=== PATIENT | female | born 1925 | race Caucasian/White ===

== ENCOUNTER 2016-10-11 15:03 | Inpatient (IN) | payer MEDICARE ==
--- NOTE | 2016-10-11 15:06 | ED Physician Chart ---
Chief Complaint/HPI - Patient Information Date Seen:: 10/11/16 Time Seen:: 15:06 Chief Complaint:: cough History of Present Illness:: 89-year-old female brought in by EMS with acute, worsening, constant, moderate to severe, nonproductive cough with associated shortness of breath since early this morning. Also has associated weakness. Limited history as patient has some slight dementia Some history provided by EMS and EMS run sheet Historian:: Patient Review:: Nurse's Note Reviewed Review of Systems - Review of Systems Other: Complete system review otherwise unremarkable except as noted in HPI. Past Medical History - Past Medical History Past Medical History: HTN, CHF, PUD/GERD, Dementia, Other (afib) Family History: None Social History: Non Smoker, No Alcohol, No Drug Use, Care Facility Surgical History: None Psychiatricy History: Dementia Medication: Reviewed Family Medical History - Family Member Mother History Unknown: Yes Physical Exam - Physical Examination Other:: INITIAL VITAL SIGNS: Reviewed by me GENERAL: Alert and interactive. No acute distress HEAD: Head is normocephalic and atraumatic EYES: EOMI. . No scleral icterus. No conjunctival injection ENT: Moist mucous membranes. NECK: Supple. No masses. Full range of motion RESPIRATORY: No tachypnea. Patient has cough with inspiration, prolonged expiratory phase, and some wheezing worse on the right than left. The right lower lung has slight rales. CV: Regular rate and rhythm. No murmurs, rubs, or gallops ABDOMEN: Soft, non-distended, non-tender. No guarding. No rebound. No masses. EXTREMITIES: No deformity. No cyanosis. No edema. SKIN: Warm and dry. No obvious rashes. NEUROLOGIC: Alert and oriented. Face is symmetric. Speech is normal. Moves all extremities equally. Motor and sensory distally intact. Labs/Radiology/EKG Results - Lab Results Results: Lab Results 10/11/16 10/11/16 10/11/16 Range/Units 15:19 15:19 15:19 WBC 13.0 H (4.8-10.8) Th/cmm RBC 4.48 (3.80-5.20) Mil/cmm Hgb 12.5 (11.7-16.1) gm/dL Hct 37.7 (35.0-45.0) % MCV 84.1 (81-100) fl MCH 27.9 (27.0-31.0) pg MCHC Differential 33.1 (28.0-36.0) pg RDW 15.4 (11.5-20.0) % Plt Count 350 (150-400) Th/cmm MPV 9.1 fl Neutrophils % 86.6 H (40.0-80.0) % Lymphocytes % 7.8 L (20.0-50.0) % Monocytes % 4.0 (2.0-10.0) % Eosinophils % 1.1 (0.0-5.0) % Basophils % 0.5 (0.0-2.0) % PT 10.8 (9.5-11.5) SECONDS INR 1.08 (0.5-1.4) PTT (Actin FS) 30.3 (26.0-38.0) SECONDS Sodium 130 L (136-145) mEq/L Potassium 4.9 (3.5-5.1) mEq/L Chloride 92 L (98-107) mEq/L Carbon Dioxide 35.1 H (21.0-31.0) mEq/L Anion Gap 7.8 (7.0-16.0) BUN 26 H (7-25) mg/dL Creatinine 1.3 H (0.6-1.2) mg/dL Est GFR ( Amer) TNP Est GFR (Non-Af Amer) TNP BUN/Creatinine Ratio 20.0 Glucose 146 H (70-105) mg/dL Whole Bld Lactic Acid (0.60-2.00) mmol/L Calcium 8.7 (8.6-10.3) mg/dL Total Bilirubin 0.3 (0.3-1.0) mg/dL AST 22 (13-39) U/L ALT 41 (7-52) U/L Alkaline Phosphatase 79 (34-104) U/L Creatine Kinase 39 (30-223) U/L Total Protein 6.0 (6.0-8.3) gm/dL Albumin 3.1 L (3.7-5.3) gm/dL Globulin 2.9 gm/dL Albumin/Globulin Ratio 1.1 (1.0-1.8) Urine Source Urine Color Urine Clarity (CLEAR) Urine pH Ur Specific [place] (1.005-1.030) Urine Protein (NEGATIVE) mg/dL Urine Glucose (UA) (NEGATIVE) mg/dL Urine Ketones (NEGATIVE) mg/dL Urine Blood (NEGATIVE) Urine Nitrate (NEGATIVE) Urine Bilirubin (NEGATIVE) Urine Urobilinogen (0.2 - 1.0) E.U./dL Ur Leukocyte Esterase (NEGATIVE) Urine RBC (0-5) /hpf Urine WBC (0-5) /hpf Ur Epithelial Cells (FEW) /lpf Urine Bacteria (NONE SEEN) /hpf 10/11/16 10/11/16 Range/Units 15:19 16:10 WBC (4.8-10.8) Th/cmm RBC (3.80-5.20) Mil/cmm Hgb (11.7-16.1) gm/dL Hct (35.0-45.0) % MCV (81-100) fl MCH (27.0-31.0) pg MCHC Differential (28.0-36.0) pg RDW (11.5-20.0) % Plt Count (150-400) Th/cmm MPV fl Neutrophils % (40.0-80.0) % Lymphocytes % (20.0-50.0) % Monocytes % (2.0-10.0) % Eosinophils % (0.0-5.0) % Basophils % (0.0-2.0) % PT (9.5-11.5) SECONDS INR (0.5-1.4) PTT (Actin FS) (26.0-38.0) SECONDS Sodium (136-145) mEq/L Potassium (3.5-5.1) mEq/L Chloride (98-107) mEq/L Carbon Dioxide (21.0-31.0) mEq/L Anion Gap (7.0-16.0) BUN (7-25) mg/dL Creatinine (0.6-1.2) mg/dL Est GFR ( Amer) Est GFR (Non-Af Amer) BUN/Creatinine Ratio Glucose (70-105) mg/dL Whole Bld Lactic Acid 0.95 (0.60-2.00) mmol/L Calcium (8.6-10.3) mg/dL Total Bilirubin (0.3-1.0) mg/dL AST (13-39) U/L ALT (7-52) U/L Alkaline Phosphatase (34-104) U/L Creatine Kinase (30-223) U/L Total Protein (6.0-8.3) gm/dL Albumin (3.7-5.3) gm/dL Globulin gm/dL Albumin/Globulin Ratio (1.0-1.8) Urine Source CATH Urine Color YELLOW Urine Clarity CLOUDY H (CLEAR) Urine pH 5.5 Ur Specific [place] 1.015 (1.005-1.030) Urine Protein NEGATIVE (NEGATIVE) mg/dL Urine Glucose (UA) NEGATIVE (NEGATIVE) mg/dL Urine Ketones NEGATIVE (NEGATIVE) mg/dL Urine Blood TRACE (NEGATIVE) Urine Nitrate POSITIVE H (NEGATIVE) Urine Bilirubin NEGATIVE (NEGATIVE) Urine Urobilinogen 0.2 (0.2 - 1.0) E.U./dL Ur Leukocyte Esterase MODERATE H (NEGATIVE) Urine RBC 2-5 (0-5) /hpf Urine WBC 50-100 H (0-5) /hpf Ur Epithelial Cells FEW (FEW) /lpf Urine Bacteria MODERATE (NONE SEEN) /hpf - Radiology Results Results: Single AP VIEW Portable Chest X-ray was interpreted independently and contemporaneously by Vika Prescott MD: No cardiomegaly Normal mediastinum Right lower lobe infiltrates No pneumothorax No soft tissue or bony abnormalities - EKG Interpretations Comments:: 12-lead EKG Interpretation by Vika Prescott MD: Atrial fibrillation with ventricular rate of 47 beats per minute Normal axis Normal intervals No acute ST or T wave changes. No obvious STEMI ED Septic Shock - . Is Septic Shock (SBP<90, OR Lactate>4 mmol\L) present?: No Reassessment (Disposition) - Reassessment Reassessment:: Patient has right lower lobe pneumonia. She also has a urinary tract infection. She does have bradycardia with A. fib. She is a leukocytosis as well. She did have some wheezing when she first arrived. She did receive Solu- Medrol and breathing treatment. She also received blood cultures prior to receiving antibiotics. She received IV antibiotics. She did so some improvement in the ER however given her advanced age and symptoms and multiple morbidities including acute pneumonia and acute urinary tract infection and acute kidney injury A she'll likely benefit from further hospitalization and treatment. I spoke to Dr. Chowdhury about the case. Patient has good understanding of the case. He'll admit the patient for further workup and treatment. Reassessment Condition:: Improved - Diagnosis Diagnosis:: Right lower lobe pneumonia Acute urinary tract infection with hematuria Acute kidney injury Dehydration - Patient Disposition Discharge/Transfer:: Acute Care w/in this hosp Admitted to:: Telemetry Admitting Medical Physician:: Aquilino Chowdhury Time:: 18:00 Condition at Disposition:: Improved
[2016-10-11] MEDS ORDERED: cefTRIAXone 1 GM in Sodium Chloride 0.9% 50 ML IV ONE (15:14)
[2016-10-11] MEDS ORDERED: Azithromycin 500 MG in Sodium Chloride 0.9% 500 ML IV ONE (15:15)
[2016-10-11] MEDS ORDERED: Albuterol/Ipratropium Neb 3 ML AERS HHN ONE ×2 (15:30→15:35)
[2016-10-11 15:40] LABS: % BASOPHILS 0.5 % (0.0-2.0); % EOSINOPHILS 1.1 % (0.0-5.0); % LYMPHOCYTES 7.8 % (20.0-50.0); % NEUTROPHILS 86.6 % (40.0-80.0); HEMATOCRIT 37.7 % (35.0-45.0); HEMOGLOBIN 12.5 gm/dL (11.7-16.1); MEAN CELL VOLUME 84.1 fl (81-100); MEAN CORPUSCULAR HEMOGLOBIN 27.9 pg (27.0-31.0); MEAN CORPUSCULAR HGB CONC 33.1 pg (28.0-36.0); MEAN PLATELET VOLUME 9.1 fl; NEUTROPHILE ABSOLUTE 11.3 Th/cmm (1.8-8.0); PLATELET COUNT 350 Th/cmm (150-400); RED BLOOD COUNT 4.48 Mil/cmm (3.80-5.20); RED CELL DISTRIBUTION WIDTH 15.4 % (11.5-20.0)
[2016-10-11 15:46] LABS: INR 1.08 (0.5-1.4); PROTHROMBIN TIME (TEST) 10.8 SECONDS (9.5-11.5)
[2016-10-11 15:59] LABS: ALB/GLOB RATIO 1.1 (1.0-1.8); ANION GAP 7.8 (7.0-16.0); BILIRUBIN,TOTAL 0.3 mg/dL (0.3-1.0); BUN - UREA NITROGEN 26 mg/dL (7-25); CALCIUM SERUM 8.7 mg/dL (8.6-10.3); CARBON DIOXIDE 35.1 mEq/L (21.0-31.0); CHLORIDE 92 mEq/L (98-107); CREATININE - SERUM 1.3 mg/dL (0.6-1.2); GLUCOSE 146 mg/dL (70-105); POTASSIUM SERUM 4.9 mEq/L (3.5-5.1); SGOT 22 U/L (13-39); SGPT/ALT 41 U/L (7-52); SODIUM SERUM 130 mEq/L (136-145)
[2016-10-11 16:00] LABS: ALKALINE PHOSPHATASE 79 U/L (34-104)
[2016-10-11 16:53] LABS: URINE BILIRUBIN NEGATIVE (NEGATIVE); URINE COLOR YELLOW; URINE GLUCOSE (UA) NEGATIVE (NEGATIVE); URINE KETONE NEGATIVE (NEGATIVE)
[2016-10-11 16:54] LABS: URINE BLOOD TRACE (NEGATIVE); URINE PH 5.5; URINE PROTEIN NEGATIVE (NEGATIVE); URINE UROBILINOGEN 0.2 E.U./dL (0.2 - 1.0)
[2016-10-11 16:55] LABS: URINE BACTERIA MODERATE /hpf (NONE SEEN); URINE EPITHELIAL CELLS FEW /lpf (FEW); URINE WBC 50-100 /hpf (0-5)
[2016-10-11] MEDS ORDERED: Fleet Enema 135 mL RC PRN (19:37)
[2016-10-11] MEDS ORDERED: Atropine Sulfate 0.1 mg/mL 5 mL Syr IVP PRN (20:05)
[2016-10-11] MEDS ORDERED: Atropine Sulfate 1 mg/mL 1 mL Vial IVP PRN (20:27)
--- NOTE | 2016-10-11 22:32 | Admit Criteria Form ---
Admit Criteria Forms - Admit Criteria Diagnosis: PNEUMONIA, COMMUNITY ACQUIRED Clinical Indications for Admission to Inpatient Care ( Place 'X' for any and all applicable criteria): Admission is indicated for ANY ONE of the following (1)(2)(3): [ ]I. Hypoxemia indicated by ANY ONE of the following: [ ]a) Oxygen saturation less than 90% while breathing room air [ ]b) PO2 less than 60 mm Hg (8.0 kPa) while breathing room air [ ]c) Chronic lung disease with significant deterioration from baseline oxygenation [ ]II. Appropriate diagnostic testing and treatment unavailable in outpatient or recovery facility (eg,testing or infection control measures unavailable(10) [ ]III. Moderate-risk or high-risk category patients (Pneumonia Severity Index (PSI) class IV or V, or CURB-65 score of 3 or greater). [ ]IV. Outpatient treatment failure as indicated by ANY ONE of the following(9) : [ ]a) Failure to respond to antibiotic (eg, resistant organism) [ ]b) Clinically significant adverse effects from medication (eg, vomiting) [ ]c) Complications of pneumonia (eg, empyema, bacteremia) [ ]d) Significant worsening of comorbid cond necessitating inpatient care (eg, chronic heart failure) [ X]V. Intermediate-risk category patients (eg, PSI class III or CURB-65 score 2) who do not improve with initial therapy and observation. [ ]. Immunocompromised patients (eg, AIDS, chronic steroid use) at moderate or high risk based on clinical evaluation. [ ]VII. Complicated pleural effusions (eg, exudative, loculated) [X ]VIII.Hemodynamic instability [ ] IX. Altered mental status that is severe or persistent. [ ]X. Dehydration that is severe or persistent. [ ]XI. Bacteremia [ ]XII. Respiratory finding (eg. tachypnea) that do not respond to outpatient or observation care treatment Extended stay beyond goal length of stay may be needed for (20) [ ]a) Unclear diagnosis [ ]b) Pleural disease [ ]c) Severe pneumonia or treatment failure (25 [ ]d) Respiratory failure (anticipate invasive or noninvasive ventilatory support) [ ]e) Abnormal serum electrolytes (serum Na concentration less than 135 mEq/L (mmol/L) (32)(33) [ ]f) Clinically significant comorbid illness (eg, heart failure, atrial fibrillation with rapid heart rate, alcohol withdrawal, renal insufficiency)(34)(35) [ ]g) Comorbid acute exacerbation of COPD(36) [ ]h) Concomitant diagnosis of malignancy that may be associated with malnutrition, immunologic impairment, or bronchial obstruction. [ ]i) Concomitant altered mental status [ ]j) Culture-identified Gram-negative or antibiotic-resistant organism (eg, Pseudomonas, methicillin-resistant Staphylococcus aureus)(30) [ ]k) Healthcare-associated pneumonia The original [facility] [employer] content created by [employer] has been revised. The portions of the content which have been revised are identified through the use of italic text or in bold, and [facility] has neither reviewed nor approved the modified material. All other unmodified content is copyright [facility] [employer]. Please see references footnoted in the original [facility] [employer] edition 2016 Admit Criteria Met?: Yes
[2016-10-12] MEDS: Diltiazem 30 mg Tab PO SCH ×2 (01:30→06:41)
--- NOTE | 2016-10-12 03:22 | History & Physical ---
CHIEF COMPLAINT: Congestion and cough. HISTORY OF PRESENT ILLNESS: The patient is an 89-year-old female with past medical history of hypertension, CHF, peptic ulcer disease, GERD, dementia, atrial fibrillation, brought in from nursing facility for acute worsening of constant [id number] nonproductive cough associated with shortness of breath and congestion. I was informed that the patient had fever also. The patient also complained of dizziness and generalized weakness. On initial evaluation, the patient's vital signs showed temperature 97.9, pulse 50, respirations 16, blood pressure was 119/68, oxygen saturation 97%. WBC count was 13,000 with left shift. The patient had received Rocephin and Zithromax in the ER. The patient also received Solu-Medrol 125 mg IV one dose. The patient was admitted to Telemetry. Her heart rate went down to 38, so patient was transferred to the ICU for further care. External temporary pacemaker was placed in. Some medications including digoxin, amiodarone, metoprolol and digoxin were put on the hold. PAST MEDICAL HISTORY: Includes hypertension, CHF, peptic ulcer disease, GERD, dementia and atrial fibrillation. FAMILY HISTORY: None significant. SOCIAL HISTORY: The patient lives in a nursing facility. No history of smoking, alcohol or drug use. PAST SURGICAL HISTORY: None significant. PAST PSYCHIATRIC HISTORY: Dementia. MEDICATIONS: As per medication reconciliation sheet. [facility] showed aspirin 81 mg p.o. daily, Prevacid 30 mg p.o. daily, Lasix 20 mg p.o. twice a day, diltiazem 30 mg p.o. every 6 hours, Aricept 5 mg p.o. daily at bedtime, Tylenol 650 mg p.o. q. 4 hourly p.r.n., bisacodyl 10 mg per rectum for constipation daily, Colace 100 mg p.o. twice a day, Zofran 4 mg as p.r.n., Senna 1 tablet p.o. daily at nighttime, temazepam 30 mg p.r.n. at nighttime for insomnia, hydralazine 50 mg p.o. 4 times a day p.r.n., labetalol 200 mg three times a day and p.r.n. for high blood pressure, metoprolol 50 mg once a day, lisinopril 2.5 mg p.o. daily, amiodarone 800 mg p.o. 2 times a day, digoxin 0.25 mg p.o. once a day, multivitamins with minerals one tablet p.o. daily, levothyroxine 125 mcg p.o. daily. REVIEW OF SYSTEMS: GENERAL: The patient denies any fever or chills, but as per record, I was informed that the patient has a fever at nursing facility. No fever here. Denies any chills. Denies any diaphoresis. Denies any weight loss. The patient has generalized weakness. HEENT: The patient denies any diplopia, photophobia, sore throat or congestion. RESPIRATORY: The patient has nonproductive cough and congestion, and some shortness of breath. Currently on oxygen about 2 L per minute nasal cannula. CARDIOVASCULAR: The patient has no chest pain or palpitation. GASTROINTESTINAL: The patient denies any nausea, vomiting, diarrhea or constipation. GENITOURINARY: Denies any dysuria or hematuria. NEUROLOGIC: The patient denies any headache, but complains of dizziness. No focal weakness. No seizures. PHYSICAL EXAMINATION: CURRENT VITAL SIGNS: Shows temperature is 97.3 degrees Fahrenheit, pulse 38, respiration is 19, blood pressure 121/55, oxygen saturation 98%. GENERAL: The patient is comfortable lying in a bed, not in acute distress. HEENT: Head is normocephalic, atraumatic. Oral cavity moist. [place] tongue. Eyes, no pallor, no icterus. PERRLA, EOMI. NECK: Supple, no JVD, no carotid bruit. Trachea in midline. CHEST: Bilateral breath sounds. Crackles present mainly in the right side. HEART: S1 and S2 within normal limits. Regular rhythm. Currently, the patient has external pacemaker. Heart rate is 50 beats per minute. ABDOMEN: Soft, nontender, nondistended. Bowel sounds present. EXTREMITIES: No cyanosis, no clubbing, no edema. NEUROLOGIC: Alert, awake, oriented x 3. LABORATORY DATA: Current lab shows WBC count is 13,000, hemoglobin 12.5, hematocrit 37.7, platelets are 350,000, neutrophils 86.6%. Sodium is 130, potassium 4.9, chloride 92, bicarbonate is 35.1, BUN is 26, creatinine 1.3, glucose is 146. Lactic acid 0.95. LFTs are reviewed. Urinalysis showed positive nitrite, moderate leukocyte esterase, wbc 50-100. EKG shows atrial fibrillation with prolonged pauses. IMPRESSION: 1. Bradycardia, sick sinus syndrome versus drug induced. 2. Right lower lobe pneumonia as chest x-ray reported. Right lower lobe pneumonia infiltrate as per reading by ER physician. 3. Hypertension. 4. Atrial fibrillation. 5. Leukocytosis sepsis. 6. Hypothyroidism. 7. Congestive heart failure. 8. Peptic ulcer disease. 9. Dementia. RECOMMENDATIONS: We will start Zosyn,put external pacemaker, discontinue amiodarone, labetalol, metoprolol, and diltiazem. If bradycardia resolves, then resume the medications accordingly. Cardiology consult with Dr. Thiago Chowdhury and check cardiac marker and echocardiogram. Check EKG. JOB# [id number] JE
[2016-10-12 05:20] LABS: HEMATOCRIT 38.6 % (35.0-45.0); HEMOGLOBIN 12.7 gm/dL (11.7-16.1); RED BLOOD COUNT 4.63 Mil/cmm (3.80-5.20)
[2016-10-12 05:30] LABS: ALKALINE PHOSPHATASE 77 U/L (34-104); ANION GAP 11.5 (7.0-16.0); BILIRUBIN,TOTAL 0.4 mg/dL (0.3-1.0); BUN - UREA NITROGEN 28 mg/dL (7-25); BUN/CREATININE RATIO 21.5; CALCIUM SERUM 8.6 mg/dL (8.6-10.3); CARBON DIOXIDE 32.9 mEq/L (21.0-31.0); CHLORIDE 92 mEq/L (98-107); CREATININE - SERUM 1.3 mg/dL (0.6-1.2); GLUCOSE 151 mg/dL (70-105); POTASSIUM SERUM 5.4 mEq/L (3.5-5.1); SGOT 22 U/L (13-39); SGPT/ALT 36 U/L (7-52); SODIUM SERUM 131 mEq/L (136-145)
[2016-10-12 05:36] LABS: MEAN CELL VOLUME 83.2 fl (81-100); MEAN CORPUSCULAR HEMOGLOBIN 27.3 pg (27.0-31.0); MEAN CORPUSCULAR HGB CONC 32.9 pg (28.0-36.0); MEAN PLATELET VOLUME 9.7 fl; PLATELET COUNT 336 Th/cmm (150-400); RED CELL DISTRIBUTION WIDTH 15.5 % (11.5-20.0); WHITE BLOOD COUNT 10.7 Th/cmm (4.8-10.8)
[2016-10-12] MEDS ORDERED: Piperacillin Sodium/Tazobact 3.375 gm Vial IV ONE (06:37)
[2016-10-12] MEDS: Multivitamin w/ Minerals Tab PO SCH (08:52)
[2016-10-12] MEDS: Aspirin 81mg Chewable Tab PO SCH (08:53)
[2016-10-12] MEDS: Levothyroxine 0.125 Mg Tab PO SCH (08:56)
[2016-10-12] MEDS: Pantoprazole 40 mg EC Tab PO SCH (09:04)
[2016-10-12 09:42] LABS: BAND NEUTROPHILE 7 % (0-10); EOSINOPHIL 1 % (0-5); METAMYELOCYTE 1 % (0-0); NEUTROPHILS 83 % (40-80); PLATELET ESTIMATE ADEQUATE (NORMAL); PLATELET MORPHOLOGY GIANT PLATELETS SEEN (NORMAL); TOTAL CELLS COUNTED 100
--- NOTE | 2016-10-12 11:35 | Diagnostic Imaging Report ---
Portable chest x-ray HISTORY: Cough The heart is enlarged. Atherosclerotic calcination seen in the aorta. There is elevation the right hemidiaphragm. No definite focal pulmonary parenchymal processes. Diffuse degenerative changes noted throughout the spine. IMPRESSION: 1. Cardiomegaly with atherosclerotic vascular changes 2. No definite focal pulmonary parenchymal processes
[2016-10-12] MEDS ORDERED: Hydrocodone/APAP 10 mg/325 mg Tab PO PRN (15:00)
--- NOTE | 2016-10-12 15:49 | Cardiology ---
Patient of Dr. Bell. M-MODE ECHOCARDIOGRAM: Mitral valve, anterior leaflets of mitral valve shows normal excursion, EF velocity. Posterior leaflet of the mitral valve shows normal excursion. Left ventricular posterior wall shows increased thickness, normal excursion. Interventricular septum shows increased thickness, normal excursion, hypertrophy of the left ventricle, ejection fraction 60%. Left atrium enlarged, 5.1 cm. Aortic root shows normal dimension, normal excursion of aortic leaflets. CONCLUSION: Hypertrophy of the left ventricle, left atrial enlargement, ejection fraction 60%. 2D ECHO: Long axis view shows normal sized left ventricle with hypertrophy of the left ventricle. Left atrium enlarged. Aortic root shows normal dimension, normal excursion of aortic leaflets. Short axis view of mitral valve normal. Short axis view of aortic valve normal. Apical four chamber view showed normal sized left ventricle with hypertrophy of the left ventricle. Left atrium enlarged. Right ventricular cavity normal. Right atrial enlargement, ejection fraction 60%. CONCLUSION: Hypertrophy of the left ventricle, left atrial enlargement, right atrial enlargement, ejection fraction 60%. Doppler study shows prominent A wave consistent with poor compliance of left ventricle, mild to moderate mitral regurgitation, mild tricuspid regurgitation, moderate pulmonary regurgitation, right ventricular systolic pressure 60 mmHg with some moderate pulmonary hypertension. [facility]# [id number]
[2016-10-12 17:29] LABS: CREATINE KINASE MB 2.7 ng/mL (0.6-6.3)
[2016-10-12] MEDS: Enoxaparin 30 mg/0.3 mL 0.3mL Syr SUBQ SCH (21:08)
--- NOTE | 2016-10-13 04:37 | Consultation ---
HISTORY AND PHYSICAL: This is an 89-year-old female patient, morbidly obese, who was brought to the Emergency Room complaining of shortness of breath, cough with expectoration. In the Emergency Room, the patient was found to have pneumonia with bradycardia and hence the patient was admitted. Later on, in ICU, the patient's heart rate dipped to 30 with dig level of 5 hence cardiology consult was requested. PAST MEDICAL HISTORY: Hypertension, congestive heart failure, peptic ulcer disease, GERD, dementia and atrial fibrillation. FAMILY HISTORY: Unremarkable. SOCIAL HISTORY: No history of smoking, alcohol abuse. ALLERGIES: No known allergies. PHYSICAL EXAMINATION: VITAL SIGNS: Blood pressure 110/70, pulse 40, respirations 20. HEAD: Normocephalic. No lumps or bumps. EYES: Pupils equal, reactive to light. Fundi show AV nicking, sclerae white, conjunctivae pink. NECK: Carotid 2+. Normal upstroke. JVD 10 cm above the sternal angle. Thyroid not palpable. Lymph nodes not palpable. CHEST: Shows increased AP diameter. No kyphosis, scoliosis. LUNGS: Bilateral rales. Decreased breath sounds in both the bases. HEART: PMI sixth intercostal space with lateral to midclavicular line. S1 irregular. S2, S3, S4, bradycardia, soft systolic murmur. ABDOMEN: Soft. No organomegaly. Bowel sounds active. NEUROLOGIC: Unremarkable. EXTREMITIES: Peripheral pulses 2+. No pedal edema. CLINICAL IMPRESSION: Dig toxicity, atrial fibrillation with slow ventricular response, right lower lobe pneumonia, hyperkalemia, hypothyroidism, congestive heart failure, diastolic dysfunction, dementia and peptic ulcer disease. PLAN: We will put the patient on external pacemaker, stop digoxin, amiodarone, diltiazem, beta preeti. Monitor the patient closely in ICU with IV antibiotics. JOB# [id number]
[2016-10-13] MEDS: Sodium Chloride 0.9% 1,000 ML IV ONE ×2 (06:13→08:18)
[2016-10-13 06:59] LABS: HEMATOCRIT 37.7 % (35.0-45.0); HEMOGLOBIN 12.5 gm/dL (11.7-16.1); MEAN CELL VOLUME 82.7 fl (81-100); MEAN CORPUSCULAR HEMOGLOBIN 27.6 pg (27.0-31.0); MEAN CORPUSCULAR HGB CONC 33.3 pg (28.0-36.0); MEAN PLATELET VOLUME 9.5 fl; PLATELET COUNT 343 Th/cmm (150-400); RED BLOOD COUNT 4.55 Mil/cmm (3.80-5.20); RED CELL DISTRIBUTION WIDTH 15.7 % (11.5-20.0)
[2016-10-13 07:15] LABS: ANION GAP 7.8 (7.0-16.0); BUN - UREA NITROGEN 29 mg/dL (7-25); BUN/CREATININE RATIO 22.3; CALCIUM SERUM 8.4 mg/dL (8.6-10.3); CARBON DIOXIDE 37.6 mEq/L (21.0-31.0); CHLORIDE 94 mEq/L (98-107); CREATININE - SERUM 1.3 mg/dL (0.6-1.2); GLUCOSE 133 mg/dL (70-105); POTASSIUM SERUM 4.4 mEq/L (3.5-5.1); SODIUM SERUM 135 mEq/L (136-145)
[2016-10-13 08:19] LABS: BAND NEUTROPHILE 1 % (0-10); EOSINOPHIL 1 % (0-5); NEUTROPHILS 91 % (40-80); PLATELET ESTIMATE ADEQUATE (NORMAL); PLATELET MORPHOLOGY GIANT PLATELETS SEEN (NORMAL); TOTAL CELLS COUNTED 100
[2016-10-13] MEDS: Levothyroxine 0.125 Mg Tab PO SCH (09:29)
[2016-10-13] MEDS: Multivitamin w/ Minerals Tab PO SCH (09:29)
[2016-10-13] MEDS: Enoxaparin 30 mg/0.3 mL 0.3mL Syr SUBQ SCH ×2 (09:29→21:46)
[2016-10-13] MEDS: Aspirin 81mg Chewable Tab PO SCH (09:29)
[2016-10-13] MEDS: Pantoprazole 40 mg EC Tab PO SCH (09:29)
--- NOTE | 2016-10-13 12:28 | Infectious Disease Prog Note ---
Infectious Disease Subjective - Review of Systems Service Date: 10/13/16 Subjective: There is no new change, there is no fever. Infectious Disease Objective - Results Result Diagrams: 10/13/16 06:35 10/13/16 06:35 Recent Labs: Laboratory Last Values WBC 16.0 Th/cmm (4.8-10.8) H D 10/13/16 06:35 RBC 4.55 Mil/cmm (3.80-5.20) 10/13/16 06:35 Hgb 12.5 gm/dL (11.7-16.1) 10/13/16 06:35 Hct 37.7 % (35.0-45.0) 10/13/16 06:35 MCV 82.7 fl (81-100) 10/13/16 06:35 MCH 27.6 pg (27.0-31.0) 10/13/16 06:35 MCHC Differential 33.3 pg (28.0-36.0) 10/13/16 06:35 RDW 15.7 % (11.5-20.0) 10/13/16 06:35 Plt Count 343 Th/cmm (150-400) 10/13/16 06:35 MPV 9.5 fl 10/13/16 06:35 Neutrophils % 86.6 % (40.0-80.0) H 10/11/16 15:19 Band Neutrophils % 1 % (0-10) 10/13/16 06:35 Lymphocytes % 7.8 % (20.0-50.0) L 10/11/16 15:19 Monocytes % 4.0 % (2.0-10.0) 10/11/16 15:19 Eosinophils % 1.1 % (0.0-5.0) 10/11/16 15:19 Basophils % 0.5 % (0.0-2.0) 10/11/16 15:19 Neutrophils (Manual) 91 % (40-80) H 10/13/16 06:35 Lymphocytes 5 % (20-50) L 10/13/16 06:35 Monocytes 2 % (2-10) 10/13/16 06:35 Eosinophils 1 % (0-5) 10/13/16 06:35 Metamyelocytes 1 % (0-0) H 10/12/16 05:00 Nucleated RBCs 1.0 % (0-0) H 10/12/16 05:00 Platelet Estimate ADEQUATE (NORMAL) 10/13/16 06:35 Platelet Morphology GIANT PLATELETS SEEN (NORMAL) 10/13/16 06:35 RBC Morph Micro Appear NORMAL (NORMAL) 10/13/16 06:35 PT 10.8 SECONDS (9.5-11.5) 10/11/16 15:19 INR 1.08 (0.5-1.4) 10/11/16 15:19 PTT (Actin FS) 30.3 SECONDS (26.0-38.0) 10/11/16 15:19 Sodium 135 mEq/L (136-145) L 10/13/16 06:35 Potassium 4.4 mEq/L (3.5-5.1) 10/13/16 06:35 Chloride 94 mEq/L (98-107) L 10/13/16 06:35 Carbon Dioxide 37.6 mEq/L (21.0-31.0) H 10/13/16 06:35 Anion Gap 7.8 (7.0-16.0) 10/13/16 06:35 BUN 29 mg/dL (7-25) H 10/13/16 06:35 Creatinine 1.3 mg/dL (0.6-1.2) H 10/13/16 06:35 Est GFR ( Amer) TNP 10/13/16 06:35 Est GFR (Non-Af Amer) TNP 10/13/16 06:35 BUN/Creatinine Ratio 22.3 10/13/16 06:35 Glucose 133 mg/dL (70-105) H 10/13/16 06:35 Whole Bld Lactic Acid 0.95 mmol/L (0.60-2.00) 10/11/16 15:19 Calcium 8.4 mg/dL (8.6-10.3) L 10/13/16 06:35 Total Bilirubin 0.4 mg/dL (0.3-1.0) 10/12/16 05:00 AST 22 U/L (13-39) 10/12/16 05:00 ALT 36 U/L (7-52) 10/12/16 05:00 Alkaline Phosphatase 77 U/L (34-104) 10/12/16 05:00 Creatine Kinase 36 U/L (30-223) 10/12/16 16:30 CK-MB (CK-2) 2.7 ng/mL (0.6-6.3) 10/12/16 16:30 Troponin I 0.05 ng/mL (0.01-0.05) 10/12/16 16:30 B-Natriuretic Peptide 1030.0 pg/mL (5.0-100.0) H 10/13/16 06:35 Total Protein 6.0 gm/dL (6.0-8.3) 10/12/16 05:00 Albumin 3.0 gm/dL (3.7-5.3) L 10/12/16 05:00 Globulin 3.0 gm/dL 10/12/16 05:00 Albumin/Globulin Ratio 1.0 (1.0-1.8) 10/12/16 05:00 Urine Source CATH 10/11/16 16:10 Urine Color YELLOW 10/11/16 16:10 Urine Clarity CLOUDY (CLEAR) H 10/11/16 16:10 Urine pH 5.5 10/11/16 16:10 Ur Specific [place] 1.015 (1.005-1.030) 10/11/16 16:10 Urine Protein NEGATIVE mg/dL (NEGATIVE) 10/11/16 16:10 Urine Glucose (UA) NEGATIVE mg/dL (NEGATIVE) 10/11/16 16:10 Urine Ketones NEGATIVE mg/dL (NEGATIVE) 10/11/16 16:10 Urine Blood TRACE (NEGATIVE) 10/11/16 16:10 Urine Nitrate POSITIVE (NEGATIVE) H 10/11/16 16:10 Urine Bilirubin NEGATIVE (NEGATIVE) 10/11/16 16:10 Urine Urobilinogen 0.2 E.U./dL (0.2 - 1.0) 10/11/16 16:10 Ur Leukocyte Esterase MODERATE (NEGATIVE) H 10/11/16 16:10 Urine RBC 2-5 /hpf (0-5) 10/11/16 16:10 Urine WBC 50-100 /hpf (0-5) H 10/11/16 16:10 Ur Epithelial Cells FEW /lpf (FEW) 10/11/16 16:10 Urine Bacteria MODERATE /hpf (NONE SEEN) 10/11/16 16:10 Digoxin 3.3 ng/ml (0.8-2.0) H* 10/13/16 06:35 - Physical Exam Vitals and I&O: Vital Signs Temp 97.9 F 10/13/16 07:47 Pulse 85 10/13/16 07:47 Resp 20 10/13/16 07:47 BP 116/43 10/13/16 09:29 Pulse Ox 95 10/13/16 07:47 Intake & Output 10/12/16 10/13/16 10/13/16 18:59 06:59 18:59 Intake Total 320 350 Output Total 0 250 Balance 320 100 Intake: Intake, IV Amount 100 200 Piperacillin Sodium/ 100 150 Tazobact 3.375 gm In Sodium Chloride 0.9% 50 ml @ 100 mls/hr IV Q6HR [facility] Rx#:[id number] Oral 220 150 Output: Urine 0 250 Stool 0 Other: # Voids 1 2 # Bowel Movements 0 Stool Characteristics Soft Active Medications: Current Medications Acetaminophen (Tylenol) 650 mg PO Q4HR PRN PRN Reason: temp >38 C Stop: 12/10/16 19:36 Acetaminophen/Hydrocodone Bitart ([place] 10 Mg/325 Mg) 1 tab PO Q6H PRN PRN Reason: pain Stop: 12/11/16 14:59 Aspirin (Aspirin Chewable) 81 mg PO DAILY [facility] Stop: 12/11/16 08:59 Last Admin: 10/13/16 09:29 Dose: 81 mg Atropine Sulfate (Atropine) 1 mg IVP Q3H PRN PRN Reason: BRADYCARDIA Stop: 12/10/16 20:26 Last Admin: 10/11/16 20:29 Dose: 1 mg Bisacodyl (Dulcolax 10 Mg Supp) 10 mg RC DAILY PRN PRN Reason: Constipation Stop: 12/10/16 19:36 Diphenhydramine HCl (Benadryl) 25 mg PO Q6H PRN PRN Reason: Itching Stop: 12/10/16 19:36 Docusate Sodium (Colace) 100 mg PO BID [facility] Stop: 12/11/16 08:59 Last Admin: 10/13/16 09:29 Dose: 100 mg Donepezil HCl (Aricept) 5 mg PO HS [facility] Stop: 12/10/16 20:59 Last Admin: 10/12/16 21:08 Dose: 5 mg Enoxaparin Sodium (Lovenox) 30 mg SUBQ Q12HR [facility] Stop: 12/11/16 20:59 Last Admin: 10/13/16 09:29 Dose: 30 mg Furosemide (Lasix) 20 mg PO BID [facility] Stop: 12/11/16 08:59 Last Admin: 10/13/16 09:29 Dose: 20 mg Piperacillin Sod/Tazobactam (Sod 3.375 gm/ Sodium Chloride) 50 mls @ 100 mls/ hr IV Q6HR [facility] Stop: 12/11/16 00:00 Last Admin: 10/13/16 11:03 Dose: 100 mls/hr Levothyroxine Sodium (Synthroid) 0.125 mg PO DAILY [facility] Stop: 12/11/16 08:59 Last Admin: 10/13/16 09:29 Dose: 0.125 mg Lorazepam (Ativan) 1 mg PO Q8H PRN; Protocol PRN Reason: Anxiety Stop: 12/10/16 19:36 Ondansetron HCl (Zofran Odt) 4 mg PO Q6H PRN PRN Reason: nausea and vomiting Stop: 12/10/16 19:36 Pantoprazole Sodium (Protonix) 40 mg PO DAILY [facility] Stop: 12/11/16 08:59 Last Admin: 10/13/16 09:29 Dose: 40 mg Senna (Senna) 8.6 mg PO HS [facility] Stop: 12/10/16 20:59 Last Admin: 10/12/16 21:08 Dose: 8.6 mg Sodium Phosphate (Fleet Enema) 135 ml RC PRN PRN PRN Reason: if supp ineffective Stop: 12/10/16 19:36 Temazepam (Restoril) 30 mg PO HS PRN PRN Reason: Insomnia Stop: 12/11/16 00:44 General: no acute distress, well developed, well nourished HEENT: atraumatic, normocephalic, PERRLA, EOMI Neck: supple Cardiovascular: S1S2, irregular Lungs: clear to percussion, crackles Abdomen: soft, no tender, no distended Extremities: no cyanosis, no clubbing, no edema Neurological: awake, alert, oriented, CN 2-12 intact Skin: intact Infectious Disease Assmt/Plan - Assessment Assessment: Impression: 1. Leukocytosis. 2. Pneumonia. 3. UTI, GNR. 4. Bradycardia, likely drug induced, cannot r/o SSS. 5. Digitalis toxicity. 6. Atrial fibrillation. 7. HTN. 8. Hypothyroidism. 9. CHF. 10. Dementia. 11. Peptic ulcer disease. - Plan Plan: Recommendation: Daniela Bui. Follow up as per consultants.
[2016-10-14 05:06] LABS: % BASOPHILS 0.3 % (0.0-2.0); % EOSINOPHILS 1.2 % (0.0-5.0); % LYMPHOCYTES 9.6 % (20.0-50.0); % MONOCYTES 5.4 % (2.0-10.0); % NEUTROPHILS 83.5 % (40.0-80.0); HEMATOCRIT 40.6 % (35.0-45.0); HEMOGLOBIN 13.2 gm/dL (11.7-16.1); MEAN CELL VOLUME 82.9 fl (81-100); MEAN CORPUSCULAR HGB CONC 32.5 pg (28.0-36.0); MEAN PLATELET VOLUME 9.2 fl; NEUTROPHILE ABSOLUTE 9.6 Th/cmm (1.8-8.0); PLATELET COUNT 290 Th/cmm (150-400); RED CELL DISTRIBUTION WIDTH 15.5 % (11.5-20.0)
[2016-10-14 05:18] LABS: WHITE BLOOD COUNT 11.4 Th/cmm (4.8-10.8)
[2016-10-14 05:45] LABS: ANION GAP 10.3 (7.0-16.0); BUN - UREA NITROGEN 22 mg/dL (7-25); BUN/CREATININE RATIO 18.3; CALCIUM SERUM 8.2 mg/dL (8.6-10.3); CHLORIDE 91 mEq/L (98-107); CREATININE - SERUM 1.2 mg/dL (0.6-1.2); GLUCOSE 122 mg/dL (70-105); POTASSIUM SERUM 3.5 mEq/L (3.5-5.1); SODIUM SERUM 138 mEq/L (136-145)
[2016-10-14 05:49] LABS: CARBON DIOXIDE 40.2 mEq/L (21.0-31.0)
[2016-10-14] MEDS ORDERED: Probiotic Screen MC PRN (08:29)
[2016-10-14] MEDS: Enoxaparin 30 mg/0.3 mL 0.3mL Syr SUBQ SCH ×2 (09:12→20:17)
[2016-10-14] MEDS: Levothyroxine 0.125 Mg Tab PO SCH (09:14)
[2016-10-14] MEDS: Lactobacillus Rhamnosus 10 Billion CFU Capsule PO SCH (09:14)
[2016-10-14] MEDS: Aspirin 81mg Chewable Tab PO SCH (09:14)
[2016-10-14] MEDS: Pantoprazole 40 mg EC Tab PO SCH (09:14)
[2016-10-14] MEDS: Multivitamin w/ Minerals Tab PO SCH (09:15)
--- NOTE | 2016-10-14 11:19 | Diagnostic Imaging Report ---
Portable chest x-ray HISTORY: Shortness of breath Compared with prior exam of October 11, 2016, the heart remains enlarged. Arthroscopic calcination seen in the aorta. Electrode lead patch projects over the mid chest. No definite focal pulmonary parenchymal masses. IMPRESSION: 1. No significant change in the cardiopulmonary status 2. No focal pulmonary processes 3. Cardiomegaly with atherosclerotic vascular changes
[2016-10-14 18:45] VITALS: BP 121/55
[2016-10-15 05:16] LABS: % BASOPHILS 0.3 % (0.0-2.0); % EOSINOPHILS 0.9 % (0.0-5.0); % MONOCYTES 7.5 % (2.0-10.0); % NEUTROPHILS 79.3 % (40.0-80.0); HEMOGLOBIN 13.6 gm/dL (11.7-16.1); MEAN CELL VOLUME 83.3 fl (81-100); MEAN CORPUSCULAR HGB CONC 32.4 pg (28.0-36.0); MEAN PLATELET VOLUME 9.7 fl; NEUTROPHILE ABSOLUTE 7.9 Th/cmm (1.8-8.0); PLATELET COUNT 261 Th/cmm (150-400); RED BLOOD COUNT 5.04 Mil/cmm (3.80-5.20); RED CELL DISTRIBUTION WIDTH 15.5 % (11.5-20.0)
[2016-10-15] MEDS: Aspirin 81mg Chewable Tab PO SCH (09:20)
[2016-10-15] MEDS: Enoxaparin 30 mg/0.3 mL 0.3mL Syr SUBQ SCH ×2 (09:21→20:27)
[2016-10-15] MEDS: Levothyroxine 0.125 Mg Tab PO SCH (09:21)
[2016-10-15] MEDS: Lactobacillus Rhamnosus 10 Billion CFU Capsule PO SCH (09:21)
[2016-10-15] MEDS: Multivitamin w/ Minerals Tab PO SCH (09:21)
[2016-10-15] MEDS: Pantoprazole 40 mg EC Tab PO SCH (09:22)
--- NOTE | 2016-10-15 13:28 | General Progress Note ---
Subjective - Review of Systems Service Date: 10/15/16 Objective - Results Result Diagrams: 10/15/16 04:44 10/14/16 04:47 Recent Labs: Laboratory Last Values WBC 10.0 Th/cmm (4.8-10.8) 10/15/16 04:44 RBC 5.04 Mil/cmm (3.80-5.20) 10/15/16 04:44 Hgb 13.6 gm/dL (11.7-16.1) 10/15/16 04:44 Hct 42.0 % (35.0-45.0) 10/15/16 04:44 MCV 83.3 fl (81-100) 10/15/16 04:44 MCH 27.0 pg (27.0-31.0) 10/15/16 04:44 MCHC Differential 32.4 pg (28.0-36.0) 10/15/16 04:44 RDW 15.5 % (11.5-20.0) 10/15/16 04:44 Plt Count 261 Th/cmm (150-400) 10/15/16 04:44 MPV 9.7 fl 10/15/16 04:44 Neutrophils % 79.3 % (40.0-80.0) 10/15/16 04:44 Band Neutrophils % 1 % (0-10) 10/13/16 06:35 Lymphocytes % 12.0 % (20.0-50.0) L 10/15/16 04:44 Monocytes % 7.5 % (2.0-10.0) 10/15/16 04:44 Eosinophils % 0.9 % (0.0-5.0) 10/15/16 04:44 Basophils % 0.3 % (0.0-2.0) 10/15/16 04:44 Neutrophils (Manual) 91 % (40-80) H 10/13/16 06:35 Lymphocytes 5 % (20-50) L 10/13/16 06:35 Monocytes 2 % (2-10) 10/13/16 06:35 Eosinophils 1 % (0-5) 10/13/16 06:35 Metamyelocytes 1 % (0-0) H 10/12/16 05:00 Nucleated RBCs 1.0 % (0-0) H 10/12/16 05:00 Platelet Estimate ADEQUATE (NORMAL) 10/13/16 06:35 Platelet Morphology GIANT PLATELETS SEEN (NORMAL) 10/13/16 06:35 RBC Morph Micro Appear NORMAL (NORMAL) 10/13/16 06:35 PT 10.8 SECONDS (9.5-11.5) 10/11/16 15:19 INR 1.08 (0.5-1.4) 10/11/16 15:19 PTT (Actin FS) 30.3 SECONDS (26.0-38.0) 10/11/16 15:19 Sodium 138 mEq/L (136-145) 10/14/16 04:47 Potassium 3.5 mEq/L (3.5-5.1) 10/14/16 04:47 Chloride 91 mEq/L (98-107) L 10/14/16 04:47 Carbon Dioxide 40.2 mEq/L (21.0-31.0) H 10/14/16 04:47 Anion Gap 10.3 (7.0-16.0) 10/14/16 04:47 BUN 22 mg/dL (7-25) 10/14/16 04:47 Creatinine 1.2 mg/dL (0.6-1.2) 10/14/16 04:47 Est GFR ( Amer) TNP 10/14/16 04:47 Est GFR (Non-Af Amer) TNP 10/14/16 04:47 BUN/Creatinine Ratio 18.3 10/14/16 04:47 Glucose 122 mg/dL (70-105) H 10/14/16 04:47 Whole Bld Lactic Acid 0.95 mmol/L (0.60-2.00) 10/11/16 15:19 Calcium 8.2 mg/dL (8.6-10.3) L 10/14/16 04:47 Total Bilirubin 0.4 mg/dL (0.3-1.0) 10/12/16 05:00 AST 22 U/L (13-39) 10/12/16 05:00 ALT 36 U/L (7-52) 10/12/16 05:00 Alkaline Phosphatase 77 U/L (34-104) 10/12/16 05:00 Creatine Kinase 36 U/L (30-223) 10/12/16 16:30 CK-MB (CK-2) 2.7 ng/mL (0.6-6.3) 10/12/16 16:30 Troponin I 0.05 ng/mL (0.01-0.05) 10/12/16 16:30 B-Natriuretic Peptide 1030.0 pg/mL (5.0-100.0) H 10/13/16 06:35 Total Protein 6.0 gm/dL (6.0-8.3) 10/12/16 05:00 Albumin 3.0 gm/dL (3.7-5.3) L 10/12/16 05:00 Globulin 3.0 gm/dL 10/12/16 05:00 Albumin/Globulin Ratio 1.0 (1.0-1.8) 10/12/16 05:00 Urine Source CATH 10/11/16 16:10 Urine Color YELLOW 10/11/16 16:10 Urine Clarity CLOUDY (CLEAR) H 10/11/16 16:10 Urine pH 5.5 10/11/16 16:10 Ur Specific [place] 1.015 (1.005-1.030) 10/11/16 16:10 Urine Protein NEGATIVE mg/dL (NEGATIVE) 10/11/16 16:10 Urine Glucose (UA) NEGATIVE mg/dL (NEGATIVE) 10/11/16 16:10 Urine Ketones NEGATIVE mg/dL (NEGATIVE) 10/11/16 16:10 Urine Blood TRACE (NEGATIVE) 10/11/16 16:10 Urine Nitrate POSITIVE (NEGATIVE) H 10/11/16 16:10 Urine Bilirubin NEGATIVE (NEGATIVE) 10/11/16 16:10 Urine Urobilinogen 0.2 E.U./dL (0.2 - 1.0) 10/11/16 16:10 Ur Leukocyte Esterase MODERATE (NEGATIVE) H 10/11/16 16:10 Urine RBC 2-5 /hpf (0-5) 10/11/16 16:10 Urine WBC 50-100 /hpf (0-5) H 10/11/16 16:10 Ur Epithelial Cells FEW /lpf (FEW) 10/11/16 16:10 Urine Bacteria MODERATE /hpf (NONE SEEN) 10/11/16 16:10 Digoxin 1.8 ng/ml (0.8-2.0) 10/14/16 04:47 - Physical Exam Vitals and I&O: Vital Signs Temp 97.7 F 10/15/16 08:00 Pulse 76 10/15/16 10:00 Resp 16 10/15/16 12:00 BP 137/59 10/15/16 10:00 Pulse Ox 96 10/15/16 10:00 Intake & Output 10/14/16 10/15/16 10/15/16 18:59 06:59 18:59 Intake Total 150 550 50 Balance 150 550 50 Intake: Intake, IV Amount 150 50 50 Piperacillin Sodium/ 150 50 50 Tazobact 3.375 gm In Sodium Chloride 0.9% 50 ml @ 100 mls/hr IV Q6HR [facility] Rx#:[id number] Oral 500 Other: # Voids 3 # Bowel Movements 2 Stool Characteristics Soft Soft Soft Active Medications: Current Medications Acetaminophen (Tylenol) 650 mg PO Q4HR PRN PRN Reason: temp >38 C Stop: 12/10/16 19:36 Last Admin: 10/13/16 17:39 Dose: 650 mg Acetaminophen/Hydrocodone Bitart ([place] 10 Mg/325 Mg) 1 tab PO Q6H PRN PRN Reason: pain Stop: 12/11/16 14:59 Aspirin (Aspirin Chewable) 81 mg PO DAILY [facility] Stop: 12/11/16 08:59 Last Admin: 10/15/16 09:20 Dose: 81 mg Atropine Sulfate (Atropine) 1 mg IVP Q3H PRN PRN Reason: BRADYCARDIA Stop: 12/10/16 20:26 Last Admin: 10/11/16 20:29 Dose: 1 mg Bisacodyl (Dulcolax 10 Mg Supp) 10 mg RC DAILY PRN PRN Reason: Constipation Stop: 12/10/16 19:36 Diphenhydramine HCl (Benadryl) 25 mg PO Q6H PRN PRN Reason: Itching Stop: 12/10/16 19:36 Docusate Sodium (Colace) 100 mg PO BID [facility] Stop: 12/11/16 08:59 Last Admin: 10/15/16 09:20 Dose: 100 mg Donepezil HCl (Aricept) 5 mg PO HS [facility] Stop: 12/10/16 20:59 Last Admin: 10/14/16 20:17 Dose: 5 mg Enoxaparin Sodium (Lovenox) 30 mg SUBQ Q12HR [facility] Stop: 12/11/16 20:59 Last Admin: 10/15/16 09:21 Dose: 30 mg Furosemide (Lasix) 40 mg IVP BID [facility] Stop: 12/12/16 16:59 Last Admin: 10/15/16 09:21 Dose: 40 mg Piperacillin Sod/Tazobactam (Sod 3.375 gm/ Sodium Chloride) 50 mls @ 100 mls/ hr IV Q6HR [facility] Stop: 12/11/16 00:00 Last Admin: 10/15/16 12:17 Dose: 100 mls/hr Lactobacillus Rhamnosus (Culturelle) 1 each PO DAILY [facility] Stop: 12/13/16 08:59 Last Admin: 10/15/16 09:21 Dose: 1 each Levothyroxine Sodium (Synthroid) 0.125 mg PO DAILY [facility] Stop: 12/11/16 08:59 Last Admin: 10/15/16 09:21 Dose: 0.125 mg Lorazepam (Ativan) 1 mg PO Q8H PRN; Protocol PRN Reason: Anxiety Stop: 12/10/16 19:36 Miscellaneous (Probiotic Screen) 1 ea MC PRN PRN PRN Reason: PROTOCOL Stop: 12/13/16 08:28 Ondansetron HCl (Zofran Odt) 4 mg PO Q6H PRN PRN Reason: nausea and vomiting Stop: 12/10/16 19:36 Pantoprazole Sodium (Protonix) 40 mg PO DAILY [facility] Stop: 12/11/16 08:59 Last Admin: 10/15/16 09:22 Dose: 40 mg Senna (Senna) 8.6 mg PO HS [facility] Stop: 12/10/16 20:59 Last Admin: 10/14/16 20:17 Dose: 8.6 mg Sodium Phosphate (Fleet Enema) 135 ml RC PRN PRN PRN Reason: if supp ineffective Stop: 12/10/16 19:36 Temazepam (Restoril) 30 mg PO HS PRN PRN Reason: Insomnia Stop: 12/11/16 00:44 Last Admin: 10/14/16 20:17 Dose: 30 mg
--- NOTE | 2016-10-15 20:47 | Infectious Disease Prog Note ---
Infectious Disease Subjective - Review of Systems Service Date: 10/15/16 Subjective: There is no new change, there is no fever. Infectious Disease Objective - Results Result Diagrams: 10/15/16 04:44 10/14/16 04:47 Recent Labs: Laboratory Last Values WBC 10.0 Th/cmm (4.8-10.8) 10/15/16 04:44 RBC 5.04 Mil/cmm (3.80-5.20) 10/15/16 04:44 Hgb 13.6 gm/dL (11.7-16.1) 10/15/16 04:44 Hct 42.0 % (35.0-45.0) 10/15/16 04:44 MCV 83.3 fl (81-100) 10/15/16 04:44 MCH 27.0 pg (27.0-31.0) 10/15/16 04:44 MCHC Differential 32.4 pg (28.0-36.0) 10/15/16 04:44 RDW 15.5 % (11.5-20.0) 10/15/16 04:44 Plt Count 261 Th/cmm (150-400) 10/15/16 04:44 MPV 9.7 fl 10/15/16 04:44 Neutrophils % 79.3 % (40.0-80.0) 10/15/16 04:44 Band Neutrophils % 1 % (0-10) 10/13/16 06:35 Lymphocytes % 12.0 % (20.0-50.0) L 10/15/16 04:44 Monocytes % 7.5 % (2.0-10.0) 10/15/16 04:44 Eosinophils % 0.9 % (0.0-5.0) 10/15/16 04:44 Basophils % 0.3 % (0.0-2.0) 10/15/16 04:44 Neutrophils (Manual) 91 % (40-80) H 10/13/16 06:35 Lymphocytes 5 % (20-50) L 10/13/16 06:35 Monocytes 2 % (2-10) 10/13/16 06:35 Eosinophils 1 % (0-5) 10/13/16 06:35 Metamyelocytes 1 % (0-0) H 10/12/16 05:00 Nucleated RBCs 1.0 % (0-0) H 10/12/16 05:00 Platelet Estimate ADEQUATE (NORMAL) 10/13/16 06:35 Platelet Morphology GIANT PLATELETS SEEN (NORMAL) 10/13/16 06:35 RBC Morph Micro Appear NORMAL (NORMAL) 10/13/16 06:35 PT 10.8 SECONDS (9.5-11.5) 10/11/16 15:19 INR 1.08 (0.5-1.4) 10/11/16 15:19 PTT (Actin FS) 30.3 SECONDS (26.0-38.0) 10/11/16 15:19 Sodium 138 mEq/L (136-145) 10/14/16 04:47 Potassium 3.5 mEq/L (3.5-5.1) 10/14/16 04:47 Chloride 91 mEq/L (98-107) L 10/14/16 04:47 Carbon Dioxide 40.2 mEq/L (21.0-31.0) H 10/14/16 04:47 Anion Gap 10.3 (7.0-16.0) 10/14/16 04:47 BUN 22 mg/dL (7-25) 10/14/16 04:47 Creatinine 1.2 mg/dL (0.6-1.2) 10/14/16 04:47 Est GFR ( Amer) TNP 10/14/16 04:47 Est GFR (Non-Af Amer) TNP 10/14/16 04:47 BUN/Creatinine Ratio 18.3 10/14/16 04:47 Glucose 122 mg/dL (70-105) H 10/14/16 04:47 Whole Bld Lactic Acid 0.95 mmol/L (0.60-2.00) 10/11/16 15:19 Calcium 8.2 mg/dL (8.6-10.3) L 10/14/16 04:47 Total Bilirubin 0.4 mg/dL (0.3-1.0) 10/12/16 05:00 AST 22 U/L (13-39) 10/12/16 05:00 ALT 36 U/L (7-52) 10/12/16 05:00 Alkaline Phosphatase 77 U/L (34-104) 10/12/16 05:00 Creatine Kinase 36 U/L (30-223) 10/12/16 16:30 CK-MB (CK-2) 2.7 ng/mL (0.6-6.3) 10/12/16 16:30 Troponin I 0.05 ng/mL (0.01-0.05) 10/12/16 16:30 B-Natriuretic Peptide 1030.0 pg/mL (5.0-100.0) H 10/13/16 06:35 Total Protein 6.0 gm/dL (6.0-8.3) 10/12/16 05:00 Albumin 3.0 gm/dL (3.7-5.3) L 10/12/16 05:00 Globulin 3.0 gm/dL 10/12/16 05:00 Albumin/Globulin Ratio 1.0 (1.0-1.8) 10/12/16 05:00 Urine Source CATH 10/11/16 16:10 Urine Color YELLOW 10/11/16 16:10 Urine Clarity CLOUDY (CLEAR) H 10/11/16 16:10 Urine pH 5.5 10/11/16 16:10 Ur Specific [place] 1.015 (1.005-1.030) 10/11/16 16:10 Urine Protein NEGATIVE mg/dL (NEGATIVE) 10/11/16 16:10 Urine Glucose (UA) NEGATIVE mg/dL (NEGATIVE) 10/11/16 16:10 Urine Ketones NEGATIVE mg/dL (NEGATIVE) 10/11/16 16:10 Urine Blood TRACE (NEGATIVE) 10/11/16 16:10 Urine Nitrate POSITIVE (NEGATIVE) H 10/11/16 16:10 Urine Bilirubin NEGATIVE (NEGATIVE) 10/11/16 16:10 Urine Urobilinogen 0.2 E.U./dL (0.2 - 1.0) 10/11/16 16:10 Ur Leukocyte Esterase MODERATE (NEGATIVE) H 10/11/16 16:10 Urine RBC 2-5 /hpf (0-5) 10/11/16 16:10 Urine WBC 50-100 /hpf (0-5) H 10/11/16 16:10 Ur Epithelial Cells FEW /lpf (FEW) 10/11/16 16:10 Urine Bacteria MODERATE /hpf (NONE SEEN) 10/11/16 16:10 Digoxin 1.8 ng/ml (0.8-2.0) 10/14/16 04:47 - Physical Exam Vitals and I&O: Vital Signs Temp 97 F 10/15/16 16:00 Pulse 75 10/15/16 18:00 Resp 17 10/15/16 18:00 BP 122/59 10/15/16 18:09 Pulse Ox 98 10/15/16 18:00 Intake & Output 10/15/16 10/15/16 10/16/16 06:59 18:59 06:59 Intake Total 550 550 50 Output Total 201 Balance 550 349 50 Intake: Intake, IV Amount 50 100 50 Piperacillin Sodium/ 50 100 50 Tazobact 3.375 gm In Sodium Chloride 0.9% 50 ml @ 100 mls/hr IV Q6HR [facility] Rx#:[id number] Oral 500 450 Output: Urine 200 Stool 1 Other: # Voids 3 4 # Bowel Movements 2 Stool Characteristics Soft Soft Active Medications: Current Medications Acetaminophen (Tylenol) 650 mg PO Q4HR PRN PRN Reason: temp >38 C Stop: 12/10/16 19:36 Last Admin: 10/13/16 17:39 Dose: 650 mg Acetaminophen/Hydrocodone Bitart ([place] 10 Mg/325 Mg) 1 tab PO Q6H PRN PRN Reason: pain Stop: 12/11/16 14:59 Aspirin (Aspirin Chewable) 81 mg PO DAILY [facility] Stop: 12/11/16 08:59 Last Admin: 10/15/16 09:20 Dose: 81 mg Atropine Sulfate (Atropine) 1 mg IVP Q3H PRN PRN Reason: BRADYCARDIA Stop: 12/10/16 20:26 Last Admin: 10/11/16 20:29 Dose: 1 mg Bisacodyl (Dulcolax 10 Mg Supp) 10 mg RC DAILY PRN PRN Reason: Constipation Stop: 12/10/16 19:36 Diphenhydramine HCl (Benadryl) 25 mg PO Q6H PRN PRN Reason: Itching Stop: 12/10/16 19:36 Docusate Sodium (Colace) 100 mg PO BID [facility] Stop: 12/11/16 08:59 Last Admin: 10/15/16 18:09 Dose: 100 mg Donepezil HCl (Aricept) 5 mg PO HS [facility] Stop: 12/10/16 20:59 Last Admin: 10/15/16 20:27 Dose: 5 mg Enoxaparin Sodium (Lovenox) 30 mg SUBQ Q12HR [facility] Stop: 12/11/16 20:59 Last Admin: 10/15/16 20:27 Dose: 30 mg Furosemide (Lasix) 40 mg IVP BID [facility] Stop: 12/12/16 16:59 Last Admin: 10/15/16 18:09 Dose: 40 mg Piperacillin Sod/Tazobactam (Sod 3.375 gm/ Sodium Chloride) 50 mls @ 100 mls/ hr IV Q6HR [facility] Stop: 12/11/16 00:00 Last Infusion: 10/15/16 19:05 Dose: Infused Lactobacillus Rhamnosus (Culturelle) 1 each PO DAILY [facility] Stop: 12/13/16 08:59 Last Admin: 10/15/16 09:21 Dose: 1 each Levothyroxine Sodium (Synthroid) 0.125 mg PO DAILY [facility] Stop: 12/11/16 08:59 Last Admin: 10/15/16 09:21 Dose: 0.125 mg Lorazepam (Ativan) 1 mg PO Q8H PRN; Protocol PRN Reason: Anxiety Stop: 12/10/16 19:36 Miscellaneous (Probiotic Screen) 1 ea MC PRN PRN PRN Reason: PROTOCOL Stop: 12/13/16 08:28 Ondansetron HCl (Zofran Odt) 4 mg PO Q6H PRN PRN Reason: nausea and vomiting Stop: 12/10/16 19:36 Pantoprazole Sodium (Protonix) 40 mg PO DAILY [facility] Stop: 12/11/16 08:59 Last Admin: 10/15/16 09:22 Dose: 40 mg Senna (Senna) 8.6 mg PO HS [facility] Stop: 12/10/16 20:59 Last Admin: 10/15/16 20:27 Dose: 8.6 mg Sodium Phosphate (Fleet Enema) 135 ml RC PRN PRN PRN Reason: if supp ineffective Stop: 12/10/16 19:36 Temazepam (Restoril) 30 mg PO HS PRN PRN Reason: Insomnia Stop: 12/11/16 00:44 Last Admin: 10/14/16 20:17 Dose: 30 mg General: no acute distress, well developed, well nourished HEENT: atraumatic, normocephalic, PERRLA, EOMI Neck: supple, no thyromegaly Cardiovascular: S1S2, regular Lungs: clear to auscultation bilaterally, clear to percussion Abdomen: soft, no tender, no distended Extremities: no cyanosis, no clubbing, no edema Neurological: awake, alert, oriented, CN 2-12 intact Skin: intact Infectious Disease Assmt/Plan - Assessment Assessment: Impression: 1. Leukocytosis. 2. Pneumonia. 3. UTI, GNR. 4. Bradycardia, likely drug induced, improved. 5. Digitalis toxicity. 6. Atrial fibrillation. 7. HTN. 8. Hypothyroidism. 9. CHF. 10. Dementia. 11. Peptic ulcer disease. - Plan Plan: Recommendation: Continue Zosyn.
--- NOTE | 2016-10-19 03:26 | Discharge Summary ---
The patient was admitted for severe bradycardia, sick sinus syndrome, right lower lobe pneumonia, hypertension and atrial fibrillation, leukocytosis, hypothyroidism, congestive heart failure, peptic ulcer disease, dementia. The patient was started on Zosyn ____ started on amiodarone, labetalol, metoprolol, discontinued ____, metoprolol and diltiazem. The patient medically resolved and patient had ____. The patient was in stable condition. On 10/15/2016, the patient was sent to [facility] for further care. DIAGNOSES: Status post severe bradycardia, history of hypertension, congestive heart failure, gastroesophageal reflux disease, dementia, atrial fibrillation and I will follow the patient. MEDICATIONS: See reconciliation sheet. JOB# [id number]
== END 2016-10-15 22:00 | DRG 871 ==
LOC: ER 15:03 → TELE 17:29 → ICU 19:45
PROVIDERS: ADMIT Internal Medicine; ATTEND Internal Medicine
DX: A41.9 Sepsis, unspecified organism (principal); J18.9 Pneumonia, unspecified organism; N17.9 Acute kidney failure, unspecified; I11.0 Hypertensive heart disease with heart failure; I48.91 Unspecified atrial fibrillation; R00.1 Bradycardia, unspecified; F03.90 Unspecified dementia, unspecified severity, without behavioral disturbance, psychotic disturbance, mood disturbance, and anxiety; I50.30 Unspecified diastolic (congestive) heart failure; N39.0 Urinary tract infection, site not specified; E03.9 Hypothyroidism, unspecified; K27.9 Peptic ulcer, site unspecified, unspecified as acute or chronic, without hemorrhage or perforation; K21.9 Gastro-esophageal reflux disease without esophagitis; E66.01 Morbid (severe) obesity due to excess calories; T46.0X5A Adverse effect of cardiac-stimulant glycosides and drugs of similar action, initial encounter; Y92.89 Other specified places as the place of occurrence of the external cause; E87.5 Hyperkalemia; B96.89 Other specified bacterial agents as the cause of diseases classified elsewhere; R31.9 Hematuria, unspecified; Z68.25 Body mass index [BMI] 25.0-25.9, adult
CPT/HCPCS: 36415-UA; 71010-TC; 80048-TC; 80053-TC; 80162-TC; 81001-TC; 82550-TC; 82553; 83605; 83880-TC; 84484-TC; 85007-TC; 85025-TC; 85027-TC; 85610-TC; 85730-TC; 87086-90; 93005; 94640; J0456; J0461; J0696; J1650; J1940; J2543; J2930; J7030; J7040; Z7610